=== PATIENT | female | born 1990 | race Caucasian/White ===

== ENCOUNTER 2016-04-12 15:30 | Outpatient (CLI) | payer OTHER ==
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
== END 2016-04-12 18:15 | disposition home or self-care (01) ==
LOC: OBC SRH 15:30 → OB SRH 15:35 → OBC SRH 18:15
DX: O47.03 False labor before 37 completed weeks of gestation, third trimester (principal); Z3A.28 28 weeks gestation of pregnancy